=== PATIENT | male | born 1975 | race Two or more races ===

== ENCOUNTER 2019-06-20 15:01 | Emergency (ER) | payer MEDICAID ==
[~2019-06-20] VITALS: Ht 172.7 cm; Wt 73.5 kg
[2019-06-20 15:15] VITALS: BP 149/98
[2019-06-20] MEDS ORDERED: IBUPROFEN600 MG ORAL (15:40)
[2019-06-20] MEDS ORDERED: CEPHALEXIN500 MG ORAL (15:40)
[2019-06-20] MEDS ORDERED: Ketorolac 30mg Inj IM ONE (15:45)
[2019-06-20 16:15] VITALS: BP 149/98
--- NOTE | 2019-06-20 18:45 | Emergency Room Report ---
History of Present Illness General Chief Complaint: Pain Source: Patient Present Illness HPI 43-year-old male presents ED for evaluation. Brought in by EMS. Patient complaining of bilateral leg pain. Thinks that his feet could be infected. States they look swollen. Pain is dull, 8 out of 10, nonradiating. Denies fevers or chills. Denies cough. Denies chest pain or shortness of breath. No other aggravating relieving factors. Denies any other associated symptoms Allergies: Coded Allergies: No Known Allergies (Unverified , 06/20/19) Patient History Past Medical History: psych hx Past Surgical History: none Pertinent Family History: none Immunizations: UTD Reviewed Nursing Documentation: PMH: Agreed; PSxH: Agreed Nursing Documentation-PMH History Of Psychiatric Problem: Yes - Bipolar Review of Systems All Other Systems: negative except mentioned in HPI Physical Exam Vital Signs Date Time Temp Pulse Resp B/P (MAP) Pulse Ox O2 Delivery O2 Flow Rate FiO2 06/20/19 15:03 98.1 111 19 149/98 (115) 99 Room Air Sp02 EP Interpretation: reviewed, normal General Appearance: no apparent distress, alert, GCS 15, non-toxic Head: normocephalic, atraumatic Eyes: bilateral eye normal inspection, bilateral eye PERRL ENT: hearing grossly normal, normal pharynx, no angioedema, normal voice Neck: full range of motion, supple/symm/no masses Respiratory: chest non-tender, lungs clear, normal breath sounds, speaking full sentences Cardiovascular #1: regular rate, rhythm, no edema Cardiovascular #2: 2+ carotid (R), 2+ carotid (L), 2+ radial (R), 2+ radial (L) , 2+ dorsalis pedis (R), 2+ dorsalis pedis (L) Gastrointestinal: normal bowel sounds, non tender, soft, non-distended, no guarding, no rebound Rectal: deferred Genitourinary: normal inspection, no CVA tenderness Musculoskeletal: back normal, normal range of motion, gait/station normal, swelling Neurologic: alert, motor strength/tone normal, oriented x3, sensory intact, responsive, speech normal Psychiatric: judgement/insight normal, memory normal, mood/affect normal, no suicidal/homicidal ideation Reflexes: 3+ bicep (R), 3+ bicep (L), 3+ tricep (R), 3+ tricep (L), 3+ knee (R) , 3+ knee (L) Skin: other - erythema/induration bilteral feet. no fluctuance or discharge Lymphatic: no adenopathy Medical Decision Making Homeless Attestation I, The treating physician Dr. You, have assessed and agrees that patient is medically stable for discharge to an outpatient disposition. Diagnostic Impression: Primary Impression: Cellulitis of foot ER Course Hospital Course 43 yo M presents to ED c/o bilateral feet swelling/pain. Differential diagnoses include: Cellulitis, dermatitis, insect bite, abscess Clinical course Patient placed on stretcher. After initial history, physical exam reveals a male in no acute distress. On exam there is erythema and induration to both feet and lower ankles. No fluctuance or discharge. Patient vitals stable. Appears well, nontoxic appearing. Afebrile. I discussed findings with the patient. Given Toradol in ED. Will discharge with prescription for antibiotics. Given food homeless checklist completed. Patient ambulating in ED without difficulty. Diagnosis - cellulitis of foot stable and discharged to home with prescription for Motrin, Keflex. Instructed to followup with PMD. Instructed return to ED if symptoms recur or worsen Last Vital Signs Date Time Temp Pulse Resp B/P (MAP) Pulse Ox O2 Delivery O2 Flow Rate FiO2 06/20/19 16:15 98.5 06/20/19 15:15 86 19 149/98 99 Room Air Status: improved Disposition: HOME, SELF-CARE Condition: Stable Scripts Ibuprofen* (MOTRIN*) 600 Mg Tablet 600 MG ORAL Q8H PRN for For Pain, #30 TAB 0 Refills Prov: Evelio You MD 06/20/19 Cephalexin* (KEFLEX*) 500 Mg Capsule 500 MG ORAL EVERY 6 HOURS for 7 Days, CAP Prov: Evelio You MD 06/20/19 Referrals: NOT CHOSEN IPA/,REFERRING (PCP) Ken Almaraz [facility]. [facility] Patient Instructions: Cellulitis, Wead-tc-Darr Evelio You MD Jun 20, 2019 18:45
== END 2019-06-20 16:15 | disposition home or self-care (01) ==
LOC: EDBD 15:01 → EMR 15:25
DX: L03.116 Cellulitis of left lower limb (principal); L03.115 Cellulitis of right lower limb
CPT/HCPCS: 96372; J1885; Z7502; 99283